=== PATIENT | female | born 1935 | race African-American/Black ===

== ENCOUNTER 2019-09-24 12:26 | Inpatient (IN) | payer MEDICARE, MEDICAID ==
[~2019-09-24] VITALS: Ht 157.5 cm; Wt 49.0 kg
[~2019-09-24 12:26] MED LIST: AMLODIPINE; ASPIRIN; CRESTOR; OMEPRAZOLE; PROVAIR; [UNRECOGNIZED DRUG - OTHER]
[2019-09-24] MEDS ORDERED: ACETAMINOPHEN 325MG TABLET PO STA (14:30)
[2019-09-24 15:19] LABS: BASOPHILS % 0.8 % (0.0-2.0); EOSINOPHILS % 0.2 % (0.0-5.0); HEMATOCRIT. 39.9 % (36.0-48.0); LYMPHOCYTES % 14.3 % (20.0-50.0); MEAN CORPUSCULAR HEMOGLOBIN 25.7 pg (28.0-32.0); MEAN CORPUSCULAR VOLUME 79.2 fL (81.0-99.0); MEAN PLATELET VOLUME 9.2 fl (7.4-10.4); MONOCYTES % 11.9 % (2.0-8.0); NEUTROPHILS % 72.8 % (40.0-76.0); PLATELET 243 x1000/uL (130-400); RED BLOOD CELL COUNT 5.04 mill/uL (4.2-5.4); RED CELL DISTRIBUTION WIDTH 16.6 % (11.6-14.6)
[2019-09-24 15:24] LABS: CHLORIDE 101 mEq/L (98-107)
[2019-09-24 17:36] LABS: CLARITY URINE CLOUDY (CLEAR); COLOR URINE DARK YELLOW (YELLOW); KETONES URINE TRACE (NEGATIVE); LEUKOCYTE ESTERASE URINE 2+ (NEGATIVE); NITRITE URINE POSITIVE (NEGATIVE); OCCULT BLOOD URINE 1+ (NEGATIVE); PROTEIN URINE 1+ (NEGATIVE)
[2019-09-24] MEDS: TRAMADOL 50MG TABLET PO PRN (20:59)
[2019-09-24] MEDS: AMLODIPINE 5MG TABLET PO SCH (20:59)
[2019-09-24] MEDS: LOSARTAN POTASSIUM 50 MG TABLET PO SCH (21:12)
[2019-09-24 22:00] VITALS: BP 179/76
[2019-09-24] MEDS ORDERED: ASPI-1497 PO (23:15)
[2019-09-24] MEDS ORDERED: DRISDOL PO (23:15)
[2019-09-24] MEDS ORDERED: CRES10 PO (23:15)
[2019-09-24] MEDS ORDERED: AMLO5TAB88 PO (23:15)
[2019-09-24] MEDS ORDERED: HYDR12.54 PO (23:15)
[2019-09-24] MEDS ORDERED: LOSA100T32 PO (23:15)
[2019-09-24] MEDS ORDERED: HYDR-4135 PO (23:15)
[2019-09-24] MEDS ORDERED: OMEP20CA14 PO (23:15)
[2019-09-25] VITALS (7 sets, daily range): BP systolic 135–169; BP diastolic 53–94
[2019-09-25] MEDS ORDERED: HYDRALAZINE HCL 25MG TABLET PO SCH (09:00)
[2019-09-25] MEDS: HYDRALAZINE HCL 50MG TABLET PO SCH ×2 (09:21→18:02)
[2019-09-25] MEDS: LOSARTAN POTASSIUM 50 MG TABLET PO SCH (09:21)
[2019-09-25] MEDS: HYDROCHLOROTHIAZIDE 25MG TABLET PO SCH (09:22)
[2019-09-25] MEDS: AMLODIPINE 5MG TABLET PO SCH (09:22)
[2019-09-25] MEDS: LEVOFLOXACIN 250MG TABLET PO SCH (10:45)
[2019-09-25] MEDS: LACTULOSE 20G/30ML UDC PO SCH ×2 (14:50→20:15)
[2019-09-25] MEDS: TRAMADOL 50MG TABLET PO PRN (20:14)
[2019-09-25] MEDS: DOCUSATE SODIUM 250MG CAPSULE PO SCH (20:14)
[2019-09-26] VITALS (7 sets, daily range): BP systolic 105–189; BP diastolic 61–83
[2019-09-26] MEDS: LACTULOSE 20G/30ML UDC PO SCH ×3 (06:00→21:22)
[2019-09-26] MEDS: LOSARTAN POTASSIUM 50 MG TABLET PO SCH (08:16)
[2019-09-26] MEDS: HYDRALAZINE HCL 50MG TABLET PO SCH ×2 (08:16→17:49)
[2019-09-26] MEDS: AMLODIPINE 5MG TABLET PO SCH (08:17)
[2019-09-26] MEDS: HYDROCHLOROTHIAZIDE 25MG TABLET PO SCH (08:22)
[2019-09-26] MEDS ORDERED: ETHYL CHLORIDE CAN TOP ONE (10:30)
[2019-09-26] MEDS ORDERED: LIDOCAINE HCL/PF 1% 2ML VIAL INFIL ONE (10:30)
[2019-09-26] MEDS ORDERED: METHYLPREDNISOLONE ACETATE 40MG/ML VIAL IM ONE (10:30)
[2019-09-26] MEDS: LEVOFLOXACIN 250MG TABLET PO SCH (11:38)
[2019-09-26] MEDS ORDERED: ETHYL CHLORIDE CAN TOP SCH (12:00)
[2019-09-26] MEDS ORDERED: METHYLPREDNISOLONE ACETATE 40MG/ML VIAL IM SCH ×2 (12:00)
[2019-09-26] MEDS ORDERED: LIDOCAINE HCL/PF 1% 2ML VIAL INFIL SCH (12:00)
[2019-09-26] MEDS: DOCUSATE SODIUM 250MG CAPSULE PO SCH (21:22)
[2019-09-27] VITALS (8 sets, daily range): BP systolic 98–168; BP diastolic 55–69
[2019-09-27] MEDS: LACTULOSE 20G/30ML UDC PO SCH ×3 (05:51→21:07)
[2019-09-27] MEDS: HYDRALAZINE HCL 50MG TABLET PO SCH ×2 (09:46→16:57)
[2019-09-27] MEDS: LOSARTAN POTASSIUM 50 MG TABLET PO SCH (09:46)
[2019-09-27] MEDS: AMLODIPINE 5MG TABLET PO SCH (09:46)
[2019-09-27] MEDS: HYDROCHLOROTHIAZIDE 25MG TABLET PO SCH (09:46)
[2019-09-27] MEDS ORDERED: POTASSIUM CHLORIDE 20MEQ TABLET SR PO NR (10:30)
[2019-09-27] MEDS: LEVOFLOXACIN 250MG TABLET PO SCH (11:23)
[2019-09-27] MEDS: DOCUSATE SODIUM 250MG CAPSULE PO SCH (21:07)
[2019-09-27] MEDS: CARVEDILOL 6.25 MG TABLET PO SCH (21:07)
[2019-09-28] VITALS: BP 137/49
[2019-09-28 05:35] VITALS: BP 102/67
[2019-09-28] MEDS: LACTULOSE 20G/30ML UDC PO SCH ×3 (06:43→22:00)
[2019-09-28 08:00] VITALS: BP 148/47
[2019-09-28] MEDS: AMLODIPINE 5MG TABLET PO SCH (08:16)
[2019-09-28] MEDS: HYDRALAZINE HCL 50MG TABLET PO SCH ×2 (08:17→16:09)
[2019-09-28] MEDS: LOSARTAN POTASSIUM 50 MG TABLET PO SCH (08:17)
[2019-09-28] MEDS: CARVEDILOL 6.25 MG TABLET PO SCH ×2 (08:17→20:22)
[2019-09-28] MEDS: HYDROCHLOROTHIAZIDE 25MG TABLET PO SCH (08:17)
[2019-09-28 08:44] LABS: BASOPHILS % 0.2 % (0.0-2.0); EOSINOPHILS % 0.4 % (0.0-5.0); HEMATOCRIT. 35.2 % (36.0-48.0); HEMOGLOBIN. 11.5 g/dL (12.0-16.0); LYMPHOCYTES % 16.7 % (20.0-50.0); MEAN CORPUSCULAR HEMOGLOBIN 25.6 pg (28.0-32.0); MEAN CORPUSCULAR VOLUME 78.6 fL (81.0-99.0); MEAN PLATELET VOLUME 9.1 fl (7.4-10.4); MONOCYTES % 9.5 % (2.0-8.0); NEUTROPHILS % 73.2 % (40.0-76.0); PLATELET 388 x1000/uL (130-400); RED BLOOD CELL COUNT 4.48 mill/uL (4.2-5.4); RED CELL DISTRIBUTION WIDTH 16.4 % (11.6-14.6)
[2019-09-28 08:53] LABS: CHLORIDE 100 mEq/L (98-107)
[2019-09-28] MEDS: LEVOFLOXACIN 250MG TABLET PO SCH (11:30)
[2019-09-28 12:00] VITALS: BP 139/54
[2019-09-28 16:00] VITALS: BP 134/74
[2019-09-28 16:32] LABS: T4 FREE 1.3 ng/dL (0.76-1.46)
[2019-09-28 20:00] VITALS: BP 147/61
[2019-09-28] MEDS: DOCUSATE SODIUM 250MG CAPSULE PO SCH (20:22)
[2019-09-29] VITALS: BP 153/57
[2019-09-29 04:00] VITALS: BP 154/77
[2019-09-29] MEDS: LACTULOSE 20G/30ML UDC PO SCH ×3 (06:20→21:10)
[2019-09-29 08:00] VITALS: BP 158/71
[2019-09-29] MEDS: CARVEDILOL 6.25 MG TABLET PO SCH ×2 (09:00→21:00)
[2019-09-29] MEDS: AMLODIPINE 5MG TABLET PO SCH ×2 (09:18→21:11)
[2019-09-29] MEDS: HYDROCHLOROTHIAZIDE 12.5MG CAPSULE PO SCH (09:18)
[2019-09-29] MEDS: LOSARTAN POTASSIUM 50 MG TABLET PO SCH (09:19)
[2019-09-29] MEDS: HYDRALAZINE HCL 50MG TABLET PO SCH ×2 (09:19→17:05)
[2019-09-29 12:00] VITALS: BP 159/64
[2019-09-29] MEDS: LEVOFLOXACIN 250MG TABLET PO SCH (12:09)
[2019-09-29 16:00] VITALS: BP 144/78
[2019-09-29] MEDS ORDERED: CLONIDINE 0.1MG TABLET PO PRN (16:45)
[2019-09-29 20:00] VITALS: BP 146/53
[2019-09-29] MEDS: DOCUSATE SODIUM 250MG CAPSULE PO SCH (21:10)
[2019-09-30] VITALS: BP 170/59
[2019-09-30 02:00] VITALS: BP 179/59
[2019-09-30 04:00] VITALS: BP 150/58
[2019-09-30] MEDS: LACTULOSE 20G/30ML UDC PO SCH ×3 (06:00→14:00)
[2019-09-30 08:00] VITALS: BP 130/52
[2019-09-30] MEDS: CARVEDILOL 6.25 MG TABLET PO SCH (09:13)
[2019-09-30] MEDS: LOSARTAN POTASSIUM 50 MG TABLET PO SCH (09:13)
[2019-09-30] MEDS: HYDRALAZINE HCL 50MG TABLET PO SCH (09:13)
[2019-09-30] MEDS: HYDROCHLOROTHIAZIDE 12.5MG CAPSULE PO SCH (09:13)
[2019-09-30] MEDS: AMLODIPINE 5MG TABLET PO SCH (09:14)
[2019-09-30 09:43] LABS: CHLORIDE 103 mEq/L (98-107)
[2019-09-30] MEDS: LEVOFLOXACIN 250MG TABLET PO SCH (11:01)
[2019-09-30 11:12] LABS: FOLIC ACID (FOLATE) SERUM 7.3 ng/mL (>5.38)
[2019-09-30 12:00] VITALS: BP 149/53
[2019-09-30 15:39] VITALS: BP 149/53
[2019-10-05 14:08] LABS: 25-HYDROXY VITAMIN D3 32 ng/mL (.)
== END 2019-09-30 16:40 | disposition home health service (06) | DRG 351 ==
LOC: ER 12:26 → 8WST 16:49 → EDBEDREQ 16:51 → ENRESERV 20:35
PROVIDERS: ADMIT Internal Medicine; ATTEND Internal Medicine
DX: M17.0 Bilateral primary osteoarthritis of knee (principal); S83.512A Sprain of anterior cruciate ligament of left knee, initial encounter; S83.422A Sprain of lateral collateral ligament of left knee, initial encounter; J44.9 Chronic obstructive pulmonary disease, unspecified; E46 Unspecified protein-calorie malnutrition; K56.41 Fecal impaction; M25.462 Effusion, left knee; N39.0 Urinary tract infection, site not specified; M85.80 Other specified disorders of bone density and structure, unspecified site; E78.5 Hyperlipidemia, unspecified; F32.9 Major depressive disorder, single episode, unspecified; M21.161 Varus deformity, not elsewhere classified, right knee; M21.162 Varus deformity, not elsewhere classified, left knee; E83.52 Hypercalcemia; I25.10 Atherosclerotic heart disease of native coronary artery without angina pectoris; I27.20 Pulmonary hypertension, unspecified; I31.3 Pericardial effusion (noninflammatory); I47.1 Supraventricular tachycardia; E78.00 Pure hypercholesterolemia, unspecified; E66.9 Obesity, unspecified; M54.5 Low back pain; M54.9 Dorsalgia, unspecified; R53.81 Other malaise; I35.0 Nonrheumatic aortic (valve) stenosis; W18.39XA Other fall on same level, initial encounter; I11.0 Hypertensive heart disease with heart failure; I50.9 Heart failure, unspecified; I34.2 Nonrheumatic mitral (valve) stenosis; Y92.009 Unspecified place in unspecified non-institutional (private) residence as the place of occurrence of the external cause; Z68.28 Body mass index [BMI] 28.0-28.9, adult; Z83.3 Family history of diabetes mellitus; Z85.038 Personal history of other malignant neoplasm of large intestine; Z85.118 Personal history of other malignant neoplasm of bronchus and lung; Z86.73 Personal history of transient ischemic attack (TIA), and cerebral infarction without residual deficits; Z90.49 Acquired absence of other specified parts of digestive tract; Z68.1 Body mass index [BMI] 19.9 or less, adult; Z88.0 Allergy status to penicillin; Y93.89 Activity, other specified; Y99.8 Other external cause status; E11.9 Type 2 diabetes mellitus without complications
CPT/HCPCS: 36415; 71045; 71250; 73560; 73721; 74018; 80048; 80053; 80061; 81003; 82306; 82607; 82746; 82962; 83036; 83735; 83880; 84439; 84443; 84481; 84484; 85025; 93005; 93306; 93970; 97116; 97162; 97166; 97530; 97535; 99285; J1030; J3490

== ENCOUNTER 2020-05-04 09:00 | Emergency (ER) | payer MEDICARE, MEDICAID ==
[~2020-05-04] VITALS: Ht 167.6 cm; Wt 64.0 kg
[~2020-05-04 09:00] MED LIST changes: +AMLO5TAB88 PO; -AMLODIPINE; +ASPI-1497 PO; -ASPIRIN; +CRES10 PO; -CRESTOR; +DRISDOL PO; +HYDR-4135 PO; +HYDR12.54 PO; +LOSA100T32 PO; +OMEP20CA14 PO; -OMEPRAZOLE; -PROVAIR; -[UNRECOGNIZED DRUG - OTHER]
[2020-05-04] MEDS ORDERED: ACETAMINOPHEN 325MG TABLET PO STA (10:05)
[2020-05-04] MEDS ORDERED: ONDANSETRON HCL 4MG/2ML INJ IV ONE (10:15)
[2020-05-04 10:44] LABS: BASOPHILS % 0.4 % (0.0-2.0); EOSINOPHILS % 3.2 % (0.0-5.0); HEMATOCRIT. 37.4 % (36.0-48.0); HEMOGLOBIN. 11.8 g/dL (12.0-16.0); LYMPHOCYTES % 33.7 % (20.0-50.0); MEAN CORPUSCULAR HEMOGLOBIN 24.7 pg (28.0-32.0); MEAN CORPUSCULAR VOLUME 78.1 fL (81.0-99.0); MEAN PLATELET VOLUME 8.7 fl (7.4-10.4); MONOCYTES % 6.8 % (2.0-8.0); NEUTROPHILS % 55.9 % (40.0-76.0); PLATELET 278 x1000/uL (130-400); RED BLOOD CELL COUNT 4.78 mill/uL (4.2-5.4); RED CELL DISTRIBUTION WIDTH 15.4 % (11.6-14.6)
[2020-05-04] MEDS ORDERED: NICARDIPINE 50 MG in SODIUM CHLORIDE 0.9% 230 ML IV STA (10:55)
[2020-05-04 10:56] LABS: CHLORIDE 105 mEq/L (98-107)
[2020-05-04 10:59] LABS: ETHANOL BLOOD < 10 mg/dL; PROTHROMBIN TIME 11.2 sec (9.6-11.0)
[2020-05-04] MEDS ORDERED: DEXAMETHASONE 10 MG/ML VIAL IV ONE (11:00)
[2020-05-04] MEDS ORDERED: LEVETIRACETAM 500MG PREMIX 100 ML IV ONE (11:00)
[2020-05-04] MEDS ORDERED: MANNITOL 20% 250 ML IV ONE (11:00)
[2020-05-04] MEDS ORDERED: NICARDIPINE 40 MG/200 ML PREMIX 200 ML IV ONE ×2 (11:15→15:00)
[2020-05-04] MEDS ORDERED: HYDRALAZINE 20MG/ML VIAL IV ONE ×2 (11:30→14:15)
[2020-05-04] MEDS ORDERED: NIMODIPINE 30MG CAPSULE PO STA (12:27)
[2020-05-04 14:00] VITALS: BP 177/56
[2020-05-04 14:15] LABS: CLARITY URINE CLEAR (CLEAR); COLOR URINE YELLOW (YELLOW); KETONES URINE NEGATIVE (NEGATIVE); LEUKOCYTE ESTERASE URINE NEGATIVE (NEGATIVE); NITRITE URINE NEGATIVE (NEGATIVE); OCCULT BLOOD URINE TRACE (NEGATIVE); PROTEIN URINE 2+ (NEGATIVE); SPECIFIC GRAVITY URINE 1.032 (1.005-1.030); UROBILINOGEN URINE 0.2 E.U./dL (0.2-1.0)
[2020-05-04] MEDS ORDERED: IOHEXOL-350 100 ML BOTTLE ONE (14:21)
[2020-05-04 14:29] LABS: *AMPHETAMINES SCREEN URINE NEGATIVE (NEGATIVE)
[2020-05-04 14:30] LABS: *BARBITURATES SCREEN URINE NEGATIVE (NEGATIVE); *BENZODIAZEPINES SCREEN URINE NEGATIVE (NEGATIVE); *COCAINE SCREEN URINE NEGATIVE (NEGATIVE); METHADONE URINE SCREEN NEGATIVE (NEGATIVE); OPIATES URINE SCREEN NEGATIVE (NEGATIVE); PHENCYCLIDINE URINE SCREEN NEGATIVE (NEGATIVE)
[2020-05-04 14:31] LABS: CANNABINOID URINE SCREEN NEGATIVE (NEGATIVE)
== END 2020-05-04 14:14 | disposition short-term general hospital (02) ==
LOC: ER 09:00 → EDBEDREQ 10:15 → CANBEDREQ 12:43 → ER 14:14
DX: I60.31 Nontraumatic subarachnoid hemorrhage from right posterior communicating artery (principal); G93.41 Metabolic encephalopathy; I10 Essential (primary) hypertension; D64.9 Anemia, unspecified; R00.1 Bradycardia, unspecified
CPT/HCPCS: 36415; 70450; 70496; 71045; 80053; 80305; 80320; 81003; 83605; 84484; 85025; 85610; 93005; 96365; 96375; 99291; J0360; J1100; J1953; J2405; Q9967; Z7610; J3490; J7050; G0480